=== PATIENT | male | born 1990 | race Caucasian/White ===

== ENCOUNTER 2018-01-24 10:50 | Emergency (ER) | payer SELFPAY ==
[2018-01-24] MEDS ORDERED: CEPHALEXIN 500 MG CAPSULE PO ONE (11:23)
[2018-01-24] MEDS ORDERED: HYDROCODONE/ACETAMINOPHEN 5-325 MG TABLET PO ONE (11:23)
[2018-01-24] MEDS ORDERED: IBUPROFEN 800 MG TABLET PO ONE (11:23)
[2018-01-24] MEDS ORDERED: LIDOCAINE 1%/EPINEPHRINE INJ 20 ML VIAL INJ ONE (11:52)
[2018-01-24] MEDS ORDERED: SULFAMETHOXAZOLE/TRIMETHOPRIM 800-160 MG TABLET PO ONE (12:16)
--- NOTE | 2018-01-24 12:18 | ER Document Report ---
HPI - HPI Patient complains to provider of: Left knee pain Onset: Other - 6 weeks Onset/Duration: Persistent Quality of pain: Achy Pain Level: 2 Context: Patient presents complaining of left knee pain with swelling for the past 6 weeks. 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 Patient denies any fever or trauma. Patient states that yesterday the knee was more swollen and that the swelling has gone down today. Associated Symptoms: Other - Left knee pain with swelling Exacerbated by: Other - Flexing the knee and putting weight to the knee Relieved by: Denies Similar symptoms previously: Yes Recently seen / treated by doctor: No - ROS ROS below otherwise negative: Yes Systems Reviewed and Negative: Yes All other systems reviewed and negative - CONSTITUTIONAL Constitutional: DENIES: Fever, Chills - MUSCULOSKELETAL Musculoskeletal: REPORTS: Extremity pain - L knee, Swelling - DERM Skin Color: Erythema Skin Problems: None <ARNOL MCDONALD - Last Filed: 01/24/18 18:20> Past Medical History - General Information source: Patient - Social History Smoking Status: Never Smoker Frequency of alcohol use: None Drug Abuse: None Occupation: [employer] Lives with: Family Family History: DM, Hypertension, Other - [place]-grandfather age 42 Patient has suicidal ideation: No Patient has homicidal ideation: No - Past Medical History Cardiac Medical History: Reports: Hx Hypertension Pulmonary Medical History: Reports: Hx Asthma Renal/ Medical History: Denies: Hx Peritoneal Dialysis Psychiatric Medical History: Reports: Hx Depression Surgical Hx: Negative - Immunizations Hx Diphtheria, Pertussis, Tetanus Vaccination: - Unknown <ARNOL MCDONALD - Last Filed: 01/24/18 18:20> Vertical Provider Document - CONSTITUTIONAL Agree With Documented VS: Yes Exam Limitations: No Limitations General Appearance: WD/WN, No Apparent Distress - INFECTION CONTROL TRAVEL OUTSIDE OF THE [place] IN LAST 30 DAYS: No - HEENT HEENT: Atraumatic, Normocephalic - NECK Neck: Normal Inspection - RESPIRATORY Respiratory: Breath Sounds Normal, No Respiratory Distress - CARDIOVASCULAR Cardiovascular: Regular Rate, Regular Rhythm - BACK Back: Normal Inspection - MUSCULOSKELETAL/EXTREMETIES Musculoskeletal/Extremeties: MAEW, FROM, Tender - Left knee tenderness with patellar bursitis. Notes: With full range of motion to left knee without guarding. - NEURO Level of Consciousness: Awake, Alert, Appropriate Motor/Sensory: No Motor Deficit - DERM Integumentary: Warm, Dry. negative: Abscess Notes: Erythema over medial aspect of left patella <MUNIR MCDONALDMARTELL - Last Filed: 01/24/18 18:20> Course - Vital Signs Vital signs: Temp Pulse Resp BP Pulse Ox 98.1 F 82 16 153/83 H 99 01/24/18 10:59 01/24/18 10:59 01/24/18 10:59 01/24/18 10:59 01/24/18 10:59 <DENISE ROMERO - Last Filed: 01/24/18 12:24> - Re-evaluation Re-evalutation: 01/24/18 12:17 Dr. Romero consulted, Dr. Romero to bedside for bedside ultrasound bursa aspiration. Patient anesthetized with 1% lidocaine with epinephrine and bursa was aspirated with specimen collected per Dr. Romero - Vital Signs Vital signs: Temp Pulse Resp BP Pulse Ox 98.1 F 82 16 153/83 H 99 01/24/18 10:59 01/24/18 10:59 01/24/18 10:59 01/24/18 10:59 01/24/18 10:59 - Laboratory Laboratory results interpreted by me: 01/24/18 14:21 Labs- Entire Visit 01/24/18 12:10 Fluid Type SYNOVIAL Fluid Source KNEE Fluid Color AFUA Fluid Appearance SLIGHTLY HAZY Fluid Viscosity LIQUID Fluid WBC 4450 Fluid RBC 04520 Fluid Seg Neutrophils 86 Fluid Lymphocytes 12 Fluid Monocytes 2 Fluid Eosinophils 0 Fluid Basophils 0 <MUNIR MCDONALDMARTELL - Last Filed: 01/24/18 18:20> Procedures - Joint Aspiration Left Knee Time completed: 12:24 Consent obtained: Yes - Verbal consent obtained Joint aspiration pre-procedure: Chloraprep applied Anesthetic type: 1% Lidocaine w/epi mL's of anesthetic: 5 Needle size: 18 Amount/type of drainage: 10 Number of attempts: 1 Complications: No Notes: This was aspiration of the left knee suprapatellar bursa. The area of entry was laterally in an area that had no overlying erythema and the needle was directed medially into the bursa. The joint was not entered. 10 cc serosanguineous fluid obtained. Sent for cell count, Gram stain and culture. Note: Patient has full range of motion of the left knee. Area of concern seems to be the left bursa. He does have some inflammation over that bursa. Is been no fever or recent illnesses as per patient. <DENISE ROMERO - Last Filed: 01/24/18 12:24> Discharge <DENISE ROMERO - Last Filed: 01/24/18 12:24> <ARNOL MCDONALD - Last Filed: 01/24/18 18:20> - Discharge Clinical Impression: Bursitis Qualifiers: Bursitis location: knee Knee bursitis location: unspecified Laterality: left Qualified Code(s): M70.52 - Other bursitis of knee, left knee Left knee pain Qualifiers: Chronicity: acute Qualified Code(s): M25.562 - Pain in left knee Condition: Stable Disposition: HOME, SELF-CARE Instructions: Bursitis ([facility]), Cellulitis ([facility]), Cephalexin ([facility]), Oral Narcotic Medication ([facility]), Trimethoprim-Sulfa ([facility]) Additional Instructions: Return immediately for any new or worsening symptoms Followup with your primary care provider, call tomorrow to make a followup appointment Avoid kneeling and putting weight on the left knee Follow-up with orthopedics for further evaluation Culture is pending, we will call if you need any different treatment Prescriptions: Cephalexin Monohydrate [Keflex 500 mg Capsule] 500 mg PO Q6H 7 Days capsule Hydrocodone/Acetaminophen [[place] 5-325 Tablet] 1 each PO Q4 PRN #10 tablet PRN Reason: Naproxen [Naprosyn 250 Nmg Tablet] 1 tab PO BID #14 tablet Sulfamethoxazole/Trimethoprim [Bactrim Ds Tablet] 1 each PO BID #20 tablet Forms: Return to Work Referrals: [facility] ([facility] [Provider Group] - Follow up as needed
[2018-01-24 13:18] LABS: FLUID APPEARANCE SLIGHTLY HAZY; FLUID COLOR AMBER; FLUID SOURCE KNEE; FLUID TYPE SYNOVIAL; FLUID VISCOSITY LIQUID
[2018-01-24 14:31] VITALS: BP 165/98
== END 2018-01-24 14:31 | disposition home or self-care (01) ==
LOC: ER 10:50
PROC: 0M9P3ZZ Drainage of Left Knee Bursa and Ligament, Percutaneous Approach (ICD-10-PCS; principal; 2018-01-24)
DX: M70.52 Other bursitis of knee, left knee (principal); M25.562 Pain in left knee; M79.89 Other specified soft tissue disorders; X50.3XXA Overexertion from repetitive movements, initial encounter; I10 Essential (primary) hypertension; J45.909 Unspecified asthma, uncomplicated
CPT/HCPCS: 99283; 87205; 87070; 89050; 87075; 87077; 87186; 20610; J3490

== ENCOUNTER 2019-01-28 19:27 | Emergency (ER) | payer SELFPAY ==
[2019-01-28 19:56] VITALS: BP 151/91
--- NOTE | 2019-01-28 21:04 | RADIOLOGY REPORT (SQ) ---
EXAM DESCRIPTION: XR CHEST 2 VIEWS COMPLETED DATE/TME: 01/28/2019 20:32 CLINICAL HISTORY: 28 years, Male, cough congestion fever COMPARISON: Multiple priors, most recent from 03/17/2016 NUMBER OF VIEWS: Two TECHNIQUE: Frontal and lateral radiographs of the chest were obtained LIMITATIONS: None. FINDINGS: Cardiac and mediastinal contours are stable. Lungs are clear. No pleural effusion or pneumothorax. IMPRESSION: No acute disease. copyright 2010 [employer]- All Rights Reserved
== END 2019-01-28 22:25 | disposition left against medical advice (07) ==
LOC: ER 19:27
DX: Z53.21 Procedure and treatment not carried out due to patient leaving prior to being seen by health care provider (principal)
CPT/HCPCS: 71046; 99281